=== PATIENT | female | born 1995 | race African-American/Black ===

== ENCOUNTER 2020-02-12 21:16 | Emergency (ER) | payer OTHER ==
[2020-02-12 21:31] VITALS: BP 122/90
[2020-02-12] MEDS ORDERED: CHERRY SYRUP 10 ML UDC PO ONE (21:37)
[2020-02-12] MEDS ORDERED: DEXAMETHASONE 10 MG/ML VIAL PO STA (21:37)
[2020-02-12] MEDS ORDERED: PENICILLIN VK 250 MG TABLET PO STA (21:37)
--- NOTE | 2020-02-12 21:39 | ED Physician Documentation ---
History of Present Illness - Stated complaint Stated Complaint: SORE THROAT - Chief complaint Chief Complaint: Heent - History obtained from History obtained from: Patient - History of Present Illness Timing: Yesterday Pain level max: 6 Pain level now: 5 - Additonal information Additional information: 24-year-old female presents to the emergency department with a sore throat today. This started yesterday. She reports white exudates on the tonsils. No rhinorrhea, congestion, cough. Worse with eating and drinking. Better with rest. She is not , breast-feeding or trying to become . Review of Systems Constitutional: denies: Fever, Chills Respiratory: denies: Cough GI: denies: Vomiting, Diarrhea Skin: denies: Rash Musculoskeletal: denies: Neck pain, Back pain PD PAST MEDICAL HISTORY - Past Medical History Past Medical History: No Cardiovascular: None Respiratory: None Neuro: None Endocrine/Autoimmune: None GI: None RADIOLOGY SCHEDULER: None : None HEENT: None Psych: None Musculoskeletal: None Derm: None - Past Surgical History Past Surgical History: No - Present Medications Home Medications: Ambulatory Orders Medication Instructions Recorded Confirmed Penicillin V Potassium 500 mg PO Q6HR #40 tablet 02/12/20 - Allergies Allergies/Adverse Reactions: Allergies Allergy/AdvReac Type Severity Reaction Status Date / Time No Known Drug Allergies Allergy Verified 02/12/20 21:33 - Social History Does the pt smoke?: Yes Smoking Status: Current every day smoker Does the pt drink ETOH?: Yes Does the pt have substance abuse?: No - Immunizations Immunizations are current?: Yes - POLST Patient has POLST: No PD ED PE NORMAL - Vitals Vital signs reviewed: Yes - General General: Alert and oriented X 3, No acute distress, Well developed/nourished - HEENT HEENT: PERRL, Ears normal, Moist mucous membranes, Other (Posterior oropharynx is erythematous with tonsillar exudates. Normal phonation. No trismus. Uvula midline.) - Neck Neck: Supple, no meningeal sign, Other (Shotty anterior lymphadenopathy) - Cardiac Cardiac: RRR - Respiratory Respiratory: No respiratory distress, Clear bilaterally - Abdomen Abdomen: Soft, Non tender, Non distended - Derm Derm: Warm and dry, No rash - Neuro Neuro: Alert and oriented X 3 - Psych Psych: Normal mood, Normal affect Results - Vitals Vitals: Vital Signs - 24 hr 02/12/20 21:28 Temperature 36.1 C L Heart Rate 106 H Respiratory 17 Rate Blood Pressure 122/90 H O2 Saturation 100 Oxygen O2 Source Room air PD MEDICAL DECISION MAKING - ED course Complexity details: reviewed results, re-evaluated patient, considered differential, d/w patient ED course: Patient with what appears to be strep pharyngitis. She is well-appearing, nontoxic. Afebrile. No evidence of peritonsillar or retropharyngeal abscess. We will place on antibiotics. Given dexamethasone here. Patient counseled regarding signs and symptoms for which I believe and urgent re-evaluation would be necessary. Patient with good understanding of and agreement to plan and is comfortable going home at this time This document was made in part using voice recognition software. While efforts are made to proofread this document, sound alike and grammatical errors may occur. Departure - Departure Disposition: 01 Home, Self Care Clinical Impression: Strep pharyngitis Condition: Good Instructions: ED Strep Pharyngitis Conf Follow-Up: your,doctor in 1 week if not better [Other] Prescriptions: Penicillin V Potassium 500 mg PO Q6HR #40 tablet Comments: Take all antibiotics until gone. Return if you worsen. Drink plenty of fluids. You can use Motrin and/or Tylenol as needed for pain.
[2020-02-12 21:42] LABS: RAPID STREP SCREEN Negative (Negative)
== END 2020-02-12 21:54 | disposition home or self-care (01) ==
LOC: ED 21:16
DX: J02.0 Streptococcal pharyngitis (principal); F17.200 Nicotine dependence, unspecified, uncomplicated
CPT/HCPCS: 87070; 87430; 99283; 99284; A9270

== ENCOUNTER 2021-05-23 15:17 | Emergency (ER) | payer OTHER ==
[2021-05-23 15:23] VITALS: BP 118/61
--- NOTE | 2021-05-23 15:29 | ED Physician Documentation ---
History of Present Illness - Stated complaint Stated Complaint: FEMALE /ABD PX - Chief complaint Chief Complaint: General - History obtained from History obtained from: Patient (Silicone vaginal foreign body, "sex toy" in the vagina since this morning that she cannot retrieve, No pain) Review of Systems GI: denies: Abdominal Pain : denies: Dysuria, Frequency, Missed period, Now EGA PD PAST MEDICAL HISTORY - Past Medical History Cardiovascular: None Respiratory: None Neuro: None Endocrine/Autoimmune: None GI: None CELLAR PACKER: None : None HEENT: None Psych: None Musculoskeletal: None Derm: None - Past Surgical History Past Surgical History: No - Present Medications Home Medications: Ambulatory Orders Medication Instructions Recorded Confirmed No Known Home Medications 05/23/21 05/23/21 - Allergies Allergies/Adverse Reactions: Allergies Allergy/AdvReac Type Severity Reaction Status Date / Time No Known Drug Allergies Allergy Verified 05/23/21 15:20 - Social History Does the pt smoke?: Yes Smoking Status: Current every day smoker Does the pt drink ETOH?: Yes Does the pt have substance abuse?: No - Immunizations Immunizations are current?: Yes - POLST Patient has POLST: No PD ED PE NORMAL - Vitals Vital signs reviewed: Yes - General General: Alert and oriented X 3, No acute distress - Female Female : Other (Examined procedure done with Wendy GORDON present and chaperoning, there is a clear silicone bordered foreign body in the left lateral posterior cervical fornix) - Neuro Neuro: Alert and oriented X 3, Normal speech - Psych Psych: Normal mood, Normal affect Results - Vitals Vitals: Vital Signs - 24 hr 05/23/21 15:21 Temperature 36.9 C Heart Rate 89 Respiratory 16 Rate Blood Pressure 118/61 O2 Saturation 99 Oxygen O2 Source Room air Procedures - General procedure General procedure: Procedure note: Vaginal foreign body removal With Wendy GORDON present and chaperoning patient placed in stirrups and verbal consent for exam and foreign body removal received. A speculum was inserted and a clear foreign body was noted in the vagina and removed with forceps. It was shown to the patient and she confirmed that it was removed in its entirety and then disposed of at her request. Departure - Departure Disposition: 01 Home, Self Care Clinical Impression: Retained vaginal foreign body Qualifiers: Encounter type: initial encounter Qualified Code(s): T19.2XXA - Foreign body in vulva and vagina, initial encounter Condition: Good Record reviewed to determine appropriate education?: Yes Instructions: ED Foreign Body Vaginal
== END 2021-05-23 15:40 | disposition home or self-care (01) ==
LOC: ED 15:17
DX: T19.2XXA Foreign body in vulva and vagina, initial encounter (principal); X58.XXXA Exposure to other specified factors, initial encounter; F17.200 Nicotine dependence, unspecified, uncomplicated
CPT/HCPCS: 99281; 99282